=== PATIENT | female | born 1950 | race American Indian/Alaskan Native ===

== ENCOUNTER 2020-01-14 10:12 | Outpatient (CLI) | payer MEDICARE, OTHER ==
--- NOTE | 2020-01-14 14:58 | Magnetic Resonance Report ---
Bilateral breast MRI with and without contrast. History: NIPPLE DISCHARGE/ MASTODYNIA/ BREAST CYST/ FAMILY HX OF BREAST CA Procedure: Axial T1 and T2-weighted fat-sat images were obtained precontrast. 13 cc MultiHance was i njected intravenously and serial axial T1-weighted images with fat saturation were obtained postcontr ast. 3-D MIP projections, Kinetic analysis and subtraction imaging was utilized to evaluate. A De[employer] 8 channel breast coil was utilized for image acquisition. Comparison: None Findings: Background level of enhancement is mild. No suspicious axillary or clavicular nodes are identified. No abnormal bone marrow signal is seen. No significant chest wall enhancement is noted. Right breast: Mild benign-appearing stippled enhancement is noted. No suspicious lesions are seen. Left breast: Mild benign-appearing stippled enhancement is noted. In the upper outer left breast, mid depth, a rounded well-defined 7 mm nodule is seen with enteritis kinetics. This has increased signal on T2-weighted images and moderate signal on T1-weighted series. This is located approximately 7 cm from the nipple, 5 cm from the chest wall, and 1.3 cm from the lateral skin surface at approximately 2:00. No other significant lesions are seen. Impression: Indeterminate enhancing nodule in the left breast. Recommend targeted ultrasound in furth er evaluation. BIRADS: 0: Incomplete - needs additional imaging evaluation Signer Name: Bautista Feliciano MD Signed: 01/14/2020 2:53 PM Workstation Name: [id number]
== END 2020-01-14 10:13 | disposition home or self-care (01) ==
LOC: SPVIMAG 10:12
PROVIDERS: ATTEND Surgery
DX: N63.20 Unspecified lump in the left breast, unspecified quadrant (principal); N64.52 Nipple discharge; N64.4 Mastodynia; N60.02 Solitary cyst of left breast; Z80.3 Family history of malignant neoplasm of breast
CPT/HCPCS: A9577; C8908; 77049

== ENCOUNTER 2020-02-03 13:29 | Outpatient (CLI) | payer MEDICARE, OTHER ==
--- NOTE | 2020-02-03 15:47 | Mammography Report ---
LEFT DIGITAL DIAGNOSTIC MAMMOGRAM WITH CAD , 02/03/2020 LEFT LIMITED BREAST ULTRASOUND CLINICAL INFORMATION / INDICATION: Abnormal MRI TECHNIQUE: Digital left mammographic imaging was performed. Spot compression views were obtained. [facility] it ultrasound was performed. This examination was interpreted with the benefit of Computer-Aided De tection (CAD) analysis. COMPARISON: Recent bilateral breast MRI, 01/14/2020 FINDINGS: Breast Density: There are scattered areas of fibroglandular density. MAMMOGRAPHIC FINDINGS: Spot compression views demonstrate an ill-defined nodular density in the left breast at 3:00 with slightly irregular margins. This is best seen on the cc view with an estimated me asurement of approximately 9 mm. This finding appears to correlate with enhancing mass on recent aimee st MRI exam. There is an adjacent benign intramammary lymph node. ULTRASOUND FINDINGS: Targeted ultrasound evaluation was performed of the area of interest. Sonographic evaluation of the left breast demonstrates a small simple cyst at 3:00, 1 cm from nipple measuring 6 mm. Additionally there is a 4 mm benign appearing intramammary lymph node at 1:00, 4 cm f rom nipple. I do not see a definite sonographic correlate to account for the mammographic findings wi MRI findings. IMPRESSION: Ill defined nodular density in the left breast at 3:00 does appear to correlate with MRI findings of enhancing mass. However, there is no definite sonographic correlate. Therefore, MRI direc justin left breast biopsy is recommended. Follow up recommendation: MRI guided biopsy BI-RADS Category 4: Suspicious for Malignancy. A "normal" or negative report should not discourage follow up or biopsy of a clinically significant f inding. A written summary of these findings will be mailed to the patient. The patient will be entered into a mammography reporting system which will generate a reminder letter for the patient's next appointmen t at the appropriate interval. According to the [employer], yearly mammograms are recommended starting at age 40 and continuing as long as a woman is in good health. Breast MRI is recommended for women with an urban roximately 20-25% or greater lifetime risk of breast cancer, including women with a strong family his tory of breast or ovarian cancer and women who have been treated for Hodgkin's disease. Signer Name: Gloria Harman MD Signed: 02/03/2020 3:42 PM Workstation Name: [email or web address]
== END 2020-02-03 13:30 | disposition home or self-care (01) ==
LOC: SPVWC 13:29
PROVIDERS: ATTEND Surgery
DX: N63.23 Unspecified lump in the left breast, lower outer quadrant (principal); N60.02 Solitary cyst of left breast; R92.8 Other abnormal and inconclusive findings on diagnostic imaging of breast

== ENCOUNTER 2020-02-18 13:48 | Outpatient (CLI) | payer MEDICARE ==
--- NOTE | 2020-02-18 16:31 | Magnetic Resonance Report ---
MRI GUIDED LEFT BREAST BIOPSY, 02/18/2020 CLINICAL INFORMATION / INDICATION: ABNORMAL MAMMO R92.8. COMPARISON: Prior MRI 01/14/2020 and prior left mammogram 02/03/2020 PROCEDURE: Risks, benefits, and indications to the procedure were discussed with the patient in detail, includin g bleeding, infection, hematoma formation, and inadequate tissue sampling. The patient agreed to proc eed with both verbal and written consent. A timeout procedure was performed with two patient identifi ers. The patient was placed in the prone position in the MRI suite and localizer imaging was obtained usin g an 8 channel breast coil. Sagittal pre and post gadolinium fat-saturated sequences were obtained. The targeted area of interest was then identified and coordinates were determined. The breast was rahul ansed and prepped in the usual sterile fashion. Lidocaine 1% with and without epinephrine was used fo r local anesthesia. A 9 gauge introducer sheath and stylette was then advanced to the appropriate pos ition from the lateral approach, for enhancing mass in the 3:00 location.. The stylette was replaced with an obturator. Subsequent sagittal sequences were obtained to confirm satisfactory positioning o f the sheath. Multiple vacuum-assisted 9 gauge core samples were obtained in a round the clock fashio n with an [facility] biopsy device. Post-biopsy images confirm satisfactory tissue sampling. A biopsy clip was then deployed at the biopsy site and sheath was removed. Hemostasis achieved with manual pressur e. A sterile pressure dressing was applied to the skin. Post-biopsy mammogram was obtained. The patient tolerated the procedure without difficulty. No complications were encountered. Post-biopsy instructions were discussed with the patient and given in writing. IMPRESSION: 1. Technically successful MRI guided left breast biopsy, enhancing small mass at 3:00. Biopsy results are pending and will be reported in an addendum. Signer Name: Gloria Harman MD Signed: 02/18/2020 4:27 PM Workstation Name: [id number]
--- NOTE | 2020-02-18 16:34 | Mammography Report ---
DIGITAL DIAGNOSTIC MAMMOGRAM WITH CAD , 02/18/2020 CLINICAL INFORMATION / INDICATION: Postprocedure left mammogram following MRI guided biopsy TECHNIQUE: Digital left mammographic imaging was performed. This examination was interpreted with the benefit of Computer-aided Detection analysis. COMPARISON: MRI guided biopsy from today as well as prior mammogram 02/03/2020 FINDINGS: Breast Density: There are scattered areas of fibroglandular density. The clip placed during MRI guided biopsy is in the left breast at 3:00, middle depth, and corresponds to the mammographic density previously described. The clip is in the expected location and can be us ed for targeted localization, if pathology results require surgical excision. IMPRESSION: Successful MRI guided biopsy with postprocedure mammogram documenting that the clip in th e expected location. Follow up recommendation: Correlation with pathology results Post biopsy imaging. A "normal" or negative report should not discourage follow up or biopsy of a clinically significant f inding. A written summary of these findings will be mailed to the patient. The patient will be entered into a mammography reporting system which will generate a reminder letter for the patient's next appointmen t at the appropriate interval. According to the [employer], yearly mammograms are recommended starting at age 40 and continuing as long as a woman is in good health. Breast MRI is recommended for women with an urban roximately 20-25% or greater lifetime risk of breast cancer, including women with a strong family his tory of breast or ovarian cancer and women who have been treated for Hodgkin's disease. Signer Name: Gloria Harman MD Signed: 02/18/2020 4:29 PM Workstation Name: [id number]
== END 2020-02-18 13:49 | disposition home or self-care (01) ==
LOC: SPVIMAG 13:48
PROVIDERS: ATTEND Surgery
DX: N63.23 Unspecified lump in the left breast, lower outer quadrant (principal); R92.8 Other abnormal and inconclusive findings on diagnostic imaging of breast; Z79.899 Other long term (current) drug therapy
CPT/HCPCS: 19085; 77065; A4648; A9577; 88305

== ENCOUNTER 2020-08-18 14:26 | Outpatient (CLI) | payer MEDICARE ==
--- NOTE | 2020-08-18 15:56 | Mammography Report ---
DIGITAL DIAGNOSTIC MAMMOGRAM WITH CAD WITH TOMOSYNTHESIS, 08/18/2020 CLINICAL INFORMATION / INDICATION: Biopsy of left breast 02/18/2020 was focal atypical lobular hyperp lasia including small papilloma. OTHER BENIGN MAMMARY DYSPLASIAS OF LEFT BREAST TECHNIQUE: Digital bilateral mammographic imaging was performed. This examination was interpreted with the benefit of Computer-aided Detection analysis. COMPARISON: 02/03/2020, 02/18/2020 prior mammograms. MRI guided biopsy was reviewed as well. FINDINGS: Breast Density: There are scattered areas of fibroglandular density. There is a biopsy clip in the 3:00 position of the left breast, middle depth, corresponding to site o f recent MRI guided biopsy. The focal asymmetry noted in the left breast laterally on prior mammogram s is less apparent following biopsy. No significant interval change in the appearance of the mammogra m. The right breast remains unremarkable and unchanged. IMPRESSION: No mammographic evidence of malignancy. Patient had left MRI guided biopsy with findings of focal atypical lobular hyperplasia. Follow up recommendation: Routine yearly/surgical consultation. BI-RADS Category 2: Benign. A "normal" or negative report should not discourage follow up or biopsy of a clinically significant f inding. A written summary of these findings will be mailed to the patient. The patient will be entered into a mammography reporting system which will generate a reminder letter for the patient's next appointmen t at the appropriate interval. According to the [employer], yearly mammograms are recommended starting at age 40 and continuing as long as a woman is in good health. Breast MRI is recommended for women with an urban roximately 20-25% or greater lifetime risk of breast cancer, including women with a strong family his tory of breast or ovarian cancer and women who have been treated for Hodgkin's disease. Signer Name: Gloria Harman MD Signed: 08/18/2020 3:51 PM Workstation Name: [email or web address] [email or web address]
--- NOTE | 2020-08-19 10:41 | Mammography Report ---
Please see dictated mammogram report from same day, on separate order. Signer Name: Gloria Harman MD Signed: 08/19/2020 10:36 AM Workstation Name: [id number]
== END 2020-08-18 14:27 | disposition home or self-care (01) ==
LOC: SPVWC 14:26
PROVIDERS: ATTEND Surgery
DX: N60.82 Other benign mammary dysplasias of left breast (principal); N64.89 Other specified disorders of breast
CPT/HCPCS: 77066; G0279; 77067

== ENCOUNTER 2021-03-09 10:23 | Outpatient (CLI) | payer MEDICARE ==
--- NOTE | 2021-03-09 11:14 | Mammography Report ---
DEXA BONE DENSITY SCAN INDICATION / CLINICAL INFORMATION: OSTEOPOROSIS M81.0. 70 years Female COMPARISON: None available. LUMBAR SPINE, L1-L4: - Bone mineral density (BMD) = 0.865 g/cm2. - T-score = -2.6 - Z-score = -0.1 Change (%) since most recent prior (if available): None available. LEFT HIP, NECK : - Bone mineral density (BMD) = 0.608 g/cm2. - T-score = -2.4 - Z-score = -0.9 Change (%) since most recent prior (if available): None available. IMPRESSION: 1. WHO Classification: Osteoporosis. Fracture Risk: High. 2. 10-Year Fracture Risk (FRAX) = Major Osteoporotic Not reported.% / Hip: Not reported.% FRAX generally not reported for patients with normal or osteoporotic BMD, in zaf-[id number]-ukqovja cristy ents younger than age 50, or in patients undergoing pharmacotherapy BMD Reporting Guidelines (ISCD, 2015) BMD Reporting in Postmenopausal Women and in Men Age 50 and Older - T-scores are preferred. - The WHO densitometric classification is applicable. BMD Reporting in Females Prior to Menopause and in Males Younger Than Age 50 - Z-scores, not T-scores, are preferred. This is particularly important in children. - A Z-score of -2.0 or lower is defined as below the expected range for age, and a Z-score above -2.0 is within the expected range for age. - Osteoporosis cannot be diagnosed in men under age 50 on the basis of BMD alone. - The WHO diagnostic criteria may be applied to women in the menopausal transition. http://www.iscd.org/official-positions/2975-vrdl-jpfedsku-positions-adult/ Signer Name: Duke Weston MD Signed: 03/09/2021 11:10 AM Workstation Name: [email or web address]
== END 2021-03-09 10:24 | disposition home or self-care (01) ==
LOC: SPVWC 10:23
PROVIDERS: ATTEND Family Medicine
DX: M81.0 Age-related osteoporosis without current pathological fracture (principal)
CPT/HCPCS: 77080